=== PATIENT | male | born 2000 | race Caucasian/White ===

== ENCOUNTER 2022-09-24 10:33 | Emergency (ER) | payer BC, SELFPAY ==
[2022-09-24 11:54] VITALS: BP 145/83; PULSE 73; RESP 18; TEMP 36.6; O2SAT 100
--- NOTE | 2022-09-24 12:46 | ED.GENADULT ---
HPI - General Adult General Chief complaint: Upper Respiratory Infection Stated complaint: fever,bumps on both hands Time Seen by Provider: 09/24/22 12:38 Source: patient Mode of arrival: ambulatory Limitations: no limitations History of Present Illness HPI narrative: Patient presents today complaining of bumps on his hands x3 days. Reports 2 days ago he had a short-term fever for approximately 18 hours with fatigue and chills, with the since since resolved. 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 Related Data Allergies Allergy/AdvReac Type Severity Reaction Status Date / Time No Known Allergies Allergy Unverified 09/26/14 14:58 Review of Systems Review of Systems: CONSTITUTIONAL: Denies body aches, fever, chills, or sweats. EYES: Denies visual changes, redness, or discharge. ENT: Denies rhinorrhea, congestion, sore throat, or otalgia. CARDIOVASCULAR: Denies chest pain, palpitations, or edema. RESPIRATORY: Denies cough or dyspnea. GASTROINTESTINAL: Denies abdominal pain, nausea, vomiting, or diarrhea. GENITOURINARY: Denies dysuria or hematuria. SKIN: Denies wounds.+ Bumps on the bilateral hands MUSCULOSKELETAL: Denies back pain, joint pain, or myalgia. NEUROLOGIC: Denies headache, numbness, tingling, or weakness. PSYCH: Denies depression or anxiety. PMFSH Comments At time of signature, I have reviewed and agree with nursing past medical, surgical, social and family history unless otherwise noted. Please see nursing chart for further information. There is no relevant family history pertinent to the presenting complaint Exam Narrative: GENERAL: Well-appearing, well-nourished, and in no acute distress. HEAD: Normocephalic, atraumatic. EYES: EOMI. No redness or drainage. Conjunctivae normal. ENT: Mucous membranes pink and moist. Nares clear. No rhinorrhea. TMs normal bilaterally. Throat with 3 white ulcerations with a red ring to the soft palate lips and cheeks normal. Uvula midline. NECK: Normal AROM. Supple. No lymphadenopathy. CHEST: No respiratory distress. Clear to auscultation. HEART: Regular rate and rhythm. No murmur appreciated. Normal peripheral pulses. EXTREMITIES: Normal range of motion. No edema. SKIN: Warm, dry. Capillary refill normal. Normal skin turgor. multiple erythematous round macules to the fingers, palms, and hand dorsums, as well as the dorsums of the feet and toes. NEURO: No focal deficits. Alert and oriented x3. Gait steady. PSYCH: Normal affect. No signs of depression or anxiety. Course Course Level of Care: Express Care Visit Vital Signs Vital signs: Vital Signs Temperature 97.8 F 09/24/22 11:54 Pulse Rate 73 09/24/22 11:54 Respiratory Rate 18 09/24/22 11:54 Blood Pressure 145/83 H 09/24/22 11:54 Pulse Oximetry 100 09/24/22 11:54 Oxygen Delivery Room Air 09/24/22 11:54 Temperature 97.8 F 09/24/22 11:54 Pulse Rate 73 09/24/22 11:54 Respiratory Rate 18 09/24/22 11:54 Blood Pressure 145/83 H 09/24/22 11:54 Pulse Oximetry 100 09/24/22 11:54 Oxygen Delivery Room Air 09/24/22 11:54 Reviewed. Pt has been instructed to follow up with his PCP regarding his elevated blood pressure today. Medical Decision Making Differential Diagnosis Differential Diagnosis: [id number], viral exanthem, impetigo, contact dermatitis Vital Signs Vital Signs: Vital Signs Temperature 97.8 F 09/24/22 11:54 Pulse Rate 73 09/24/22 11:54 Respiratory Rate 18 09/24/22 11:54 Blood Pressure 145/83 H 09/24/22 11:54 Pulse Oximetry 100 09/24/22 11:54 Oxygen Delivery Room Air 09/24/22 11:54 Temperature 97.8 F 09/24/22 11:54 Pulse Rate 73 09/24/22 11:54 Respiratory Rate 18 09/24/22 11:54 Blood Pressure 145/83 H 09/24/22 11:54 Pulse Oximetry 100 09/24/22 11:54 Oxygen Delivery Room Air 09/24/22 11:54 Critical Care Time Critical Care Time Criti
== END 2022-09-24 12:56 | disposition home or self-care (01) ==
PROVIDERS: Emergency Provider Nurse Practitioner; PCP Internal Medicine
DX: B08.4 Enteroviral vesicular stomatitis with exanthem (principal)
CPT/HCPCS: 99211; G0463

== ENCOUNTER 2024-05-25 04:17 | Emergency (ER) | payer BC, SELFPAY ==
--- NOTE | ~2024-05-25 | XR_ITS ---
EXAMINATION: XR chest 2V 05/25/2024 04:47 INDICATION: Shortness of breath and chest pain PROCEDURE: 2 view chest COMPARISON: No prior studies for comparison. FINDINGS: The lungs are clear. The cardiomediastinal silhouette is within normal limits. There are no pleural effusions. There is no pneumothorax suspected. IMPRESSION: 1: NO ACUTE CARDIOPULMONARY DISEASE. Reviewed, dictated and finalized at location B.
--- NOTE | 2024-05-25 04:18 | ECG_ITS ---
Test Date: 2024-05-25 04:22:45 Measurements Intervals [place] Rate: 81 P: 61 [place]: 128 QRS: 79 QRSD: 97 T: 56 QT: 375 QTc: 437 Interpretive Statements SINUS RHYTHM INCOMPLETE RIGHT BUNDLE BRANCH BLOCK BORDERLINE ECG No previous ECG available for comparison Electronically Signed On 05-25-2024 07:46:08 CDT by Nirav Mcintosh D.O.
[2024-05-25 04:21] VITALS: BP 134/71; PULSE 82; RESP 16; TEMP 36.3; O2SAT 100
[2024-05-25 04:33] LABS: Basophils Percent Auto 0.5 % (0.2-1.2); Eosinophils Absolute Auto 0.4 K/mm3 (0-0.3); Eosinophils Percent Auto 6.6 % (0-4.4); Hematocrit 43.9 % (42.0-52.0); Hemoglobin 15.1 g/dL (14.0-18.0); Immature Granulocyte Absolute 0.01 K/mm3 (0.00-0.031); Immature Granulocyte Percent A 0.2 % (0-0.5); Lymphocytes Absolute Auto 2.55 K/mm3 (0.9-3.2); Lymphocytes Percent Auto 43.3 % (18.3-44.2); Mean Corpuscular HGB Conc 34.4 g/dl (32-36); Mean Corpuscular Hemoglobin 31.2 pg (26-34); Mean Corpuscular Volume 90.7 fl (80-100); Mean Platelet Volume 9.5 fl (7.4-10.4); Monocytes Absolute Auto 0.6 K/mm3 (0.1-0.6); Monocytes Percent Auto 9.5 % (2.6-8.5); Neutrophils Absolute Auto 2.4 K/mm3 (1.3-6.7); Neutrophils Percent Auto 39.9 % (45.5-73.1); Platelet Count Result 226 k/mm3 (150-375); Red Blood Count 4.84 M/mm3 (4.6-6.20); Red Cell Distribution Width 11.6 % (11.5-14.5); White Blood Count 5.9 K/mm3 (4.5-10.0)
[2024-05-25 04:45] LABS: Alanine Aminotransferase 23 U/L (6-50); Albumin Level 5.1 g/dL (3.5-5.1); Alkaline Phosphatase 66 U/L (38-126); Anion Gap 13 mmol/L (4-12); Aspartate Amino Transferase 36 U/L (17-59); Bilirubin,Total 0.4 mg/dL (0.2-1.3); Blood Urea Nitrogen 16 mg/dL (9-20); Calcium 9.5 mg/dL (8.4-10.2); Carbon Dioxide 26 mmol/L (22-30); Chloride 100 mmol/L (98-107); Estimated CRCL calculation 85 ml/min; Estimated Glomerular Filt Rate > 60; Glucose 109 mg/dL (65-110); Potassium 3.8 mmol/L (3.4-5.0); Sodium 139 mmol/L (137-145)
[2024-05-25 05:10] LABS: Influenza A QL RT-PCR Negative (Negative); Influenza B QL RT-PCR Negative (Negative); RSV RNA, RT-PCR Negative (Negative); SARS-CoV-2 RNA PCR Negative (Negative)
[2024-05-25 06:07] VITALS: BP 112/60; PULSE 63; RESP 21; O2SAT 98; O2SAT 99
[2024-05-25 06:10] VITALS: PULSE 68
[2024-05-25 07:13] VITALS: BP 124/66; PULSE 80; RESP 16; O2SAT 99
--- NOTE | 2024-05-25 07:23 | ED.GENADULT ---
HPI - General Adult General Chief complaint: Shortness of Breath/Dyspnea Stated complaint: right sided pain when i breathe in Time Seen by Provider: 05/25/24 06:48 History of Present Illness HPI narrative: 24-year-old male present to the emergency department for evaluation for acute onset of chest pain. Patient states that about 1:00 a.m. he had onset left-sided chest pain that is sharp in worsen with deep inspiration. Patient denies any recent illnesses coughs colds or fevers. Patient denies any prior history of pulmonary embolism or DVT. Patient denies any hormone replacement therapy. Patient is not on any blood thinners. Patient has no prior history of pneumothorax. Patient states he does have some exertional shortness of breath. Related Data Home Medications Medication Instructions Recorded Confirmed No Home Medications 05/25/24 Allergies Allergy/AdvReac Type Severity Reaction Status Date / Time No Known Allergies Allergy Unverified 05/25/24 04:25 Review of Systems Review of Systems: All systems reviewed & are unremarkable except as noted in HPI and below Exam Narrative: APPEARANCE: Well appearing, no pain, no distress, well-nourished. HEAD: normocephalic, atraumatic. EYES: PERRLA/EOMI, conjunctivae clear. NOSE: Normal no drainage EARS:TMS clear with good light reflex. THROAT: Pharynx clear, no exudate. NECK: Supple. No adenopathy, no masses. RESPIRATORY: Airway patent, respirations nonlabored. Clear to auscultation bilaterally, no rales, rhonchi, wheezing. CARDIOVASCULAR: Regular rate and rhythm without murmurs rubs or gallops. ABDOMINAL: Soft, nontender, nondistended, normal bowel sounds MUSCULOSKELETAL: Moves all extremities. Strength/ROM intact, No edema, No calf tenderness. NEURO: Alert. Cranial nerves II through XII intact. SKIN: Warm, dry. Normal Color Course Course Emergency Course: The patient was discharged home with close outpatient follow-up. Vital Signs Vital signs: Vital Signs Temperature 97.4 F L 05/25/24 04:21 Pulse Rate 82 05/25/24 04:21 Respiratory Rate 16 05/25/24 04:21 Blood Pressure 134/71 05/25/24 04:21 Pulse Oximetry 100 05/25/24 04:21 Temperature 97.4 F L 05/25/24 04:21 Pulse Rate 53 L 05/25/24 08:10 Respiratory Rate 18 05/25/24 08:10 Blood Pressure 122/40 L 05/25/24 08:10 Pulse Oximetry 99 05/25/24 08:10 Oxygen Delivery Room Air 05/25/24 06:07 Medical Decision Making MDM Narrative Medical decision making narrative: 24-year-old male presenting to the emergency department for evaluation of chest pain. Patient describes a pleuritic type of chest pain. Patient's EKG showed no acute changes. Chest x-ray showed no evidence of pneumonia or pneumothorax. Patient was afebrile with no leukocytosis and a stable hemoglobin. Patient's D-dimer was not elevated. Patient had no acute abnormalities on his CMP. Patient was negative for influenza RSV and for COVID. Low concern for pulmonary embolism, pneumonia, pneumothorax. Patient's symptoms are consistent with pleurisy. Patient and family were updated on the results of the workup and plan for discharge and close follow-up. Patient was educated on reasons to return to the emergency department. All questions concerns were addressed. Differential Diagnosis Differential Diagnosis: Pneumonia, pneumothorax, pulmonary embolism, ACS, influenza, COVID, RSV Vital Signs Vital Signs: Vital Signs Temperature 97.4 F L 05/25/24 04:21 Pulse Rate 82 05/25/24 04:21 Respiratory Rate 16 05/25/24 04:21 Blood Pressure 134/71 05/25/24 04:21 Pulse Oximetry 100 05/25/24 04:21 Temperature 97.4 F L 05/25/24 04:21 Pulse Rate 53 L 05/25/24 08:10 Respiratory Rate 18 05/25/24 08:10 Blood Pressure 122/40 L 05/25/24 08:10 Pulse Oximetry 99 05/25/24 08:10 Oxygen Delivery Room Air 05/25/24 06:07 Lab Data Lab results reviewed: Yes I reviewed the patient's lab result
[2024-05-25 07:55] LABS: D Dimer < 0.27 ug/mL (<0.48)
[2024-05-25] MEDS: IBUPROFEN 400 MG TABLET 800 MG PO (08:01)
[2024-05-25 08:10] VITALS: BP 122/40; PULSE 53; RESP 18; O2SAT 99
== END 2024-05-25 08:11 | disposition home or self-care (01) ==
PROVIDERS: Student in an Organized Health Care Education/Training Program; Emergency Provider Emergency Medicine; PCP Internal Medicine
DX: R07.9 Chest pain, unspecified (principal)
CPT/HCPCS: 36415; 71046; 80053; 85025; 85380; 87637; 93005; 99284; A9270